=== PATIENT | female | born 1985 | race African-American/Black ===

== ENCOUNTER 2018-07-10 05:09 | Inpatient (IN) ==
[2018-07-10] MEDS ORDERED: MEPERIDINE 50 MG/1 ML VIAL IV PRN (05:23)
[2018-07-10] MEDS ORDERED: BUTORPHANOL 2 MG/ML VIAL IV PRN (05:23)
[2018-07-10] MEDS ORDERED: ONDANSETRON 4 MG/2 ML VIAL IV PRN ×2 (05:23→13:07)
[2018-07-10] MEDS ORDERED: AMPICILLIN INJ 2,000 MG in SODIUM CHLORIDE 0.9% 100 ML IV ONE (05:32)
[2018-07-10 06:22] LABS: Basophils % 0.2 % (0.0-0.8); Eosinophils # 0.1 10*3/uL (0.0-0.87); Eosinophils % 0.9 % (0.00-10.9); Hematocrit 31.2 VOL% (35.7-47.0); Hemoglobin 9.7 GM/DL (12.0-16.0); Immature Granulocytes % 0.8 %; Lymphocytes % 24.8 % (21.3-54.2); Mean Corpuscular HGB Conc 31.1 GM/DL (32-36); Mean Corpuscular Hemoglobin 28 PG (27-34); Mean Corpuscular Volume 91.2 FL (87-102); Mean Platelet Volume 10.7 FL (9.6-12.0); Monocytes % 8.1 % (1.7-12.7); Neutrophils % 65.2 % (38.7-73.9); Platelet Count 190 T/CUMM (130-400); Red Blood Count 3.42 MC/CUMM (3.8-5.5); Red Cell Distribution Width 15.2 % (9.3-17.3); White Blood Count 12.2 T/CUMM (4-12)
[2018-07-10] MEDS: LACTATED RINGERS 1,000 ML IV SCH ×2 (06:32→10:34)
[2018-07-10] MEDS: OXYTOCIN/LR 20 UNIT/1,000 ML BAG IV SCH ×2 (06:40→10:48)
[2018-07-10] MEDS ORDERED: NALOXONE 0.4 MG/ML VIAL IV PRN (07:02)
[2018-07-10] MEDS ORDERED: ePHEDrine 50 MG/ML AMP IV PRN (07:02)
[2018-07-10] MEDS ORDERED: diphenhydrAMINE 50 MG/1 ML VIAL IV PRN (07:02)
[2018-07-10] MEDS ORDERED: CITRIC ACID/SODIUM CITRATE 30 ML UDCUP PO ONE (07:03)
[2018-07-10] MEDS ORDERED: FAMOTIDINE 20 MG/2 ML VIAL IV ONE (07:03)
[2018-07-10] MEDS ORDERED: fentaNYL 2 MCG/ROPIV 0.2% EPID 100 ML EPIDURAL SCH (07:30)
[2018-07-10] MEDS ORDERED: AMPICILLIN INJ 1,000 MG in SODIUM CHLORIDE 0.9% 100 ML IV SCH (07:30)
[2018-07-10] MEDS ORDERED: miSOPROStol 200 MCG TABLET ONE (08:47)
[2018-07-10] MEDS ORDERED: LIDOCAINE 1% 50 ML VIAL ONE (08:47)
[2018-07-10] MEDS ORDERED: METHYLERGONOVINE 0.2 MG/1 ML AMP ONE (08:48)
[2018-07-10] MEDS ORDERED: CARBOPROST TROMETHAMINE 250 MCG/ML AMP IM ONE (08:48)
[2018-07-10 09:27] LABS: Apearance,Urine CLEAR (Clear); Bacteria,Urine Occasional /HPF (Few); Bilirubin,Urine Negative (Negative); Blood, Urine Negative (Negative); Glucose,Urine (UA) Negative (Negative); Ketones,Urine Negative (Negative); Mucus,Urine Occasional /LPF (Occasional); Nitrite,Urine Negative (Negative); Protein,Urine Negative; RBC,Urine 3 /HPF (0-4); Squamous Epithelial Cell,Urine Occasional /HPF (0-10); Urine Color Yellow (Yellow); Urine Specific Gravity 1.023 (1.001-1.035); Urine Urobilinogen < 2.0 EU/DL (0.2-1.0); WBC,Urine 1 /HPF (0-6)
[2018-07-10] MEDS ORDERED: BISACODYL 10 MG SUPP RECTAL PRN (13:07)
[2018-07-10] MEDS ORDERED: LACTATED RINGERS 1,000 ML IV SCH (13:07)
[2018-07-10] MEDS ORDERED: ACETAMINOPHEN 325 MG TABLET PO PRN (13:07)
[2018-07-10] MEDS ORDERED: MAGNESIUM HYDROXIDE SUSP 30 ML UDCUP PO PRN (13:07)
[2018-07-10] MEDS: IBUPROFEN 800 MG TABLET PO PRN (16:07)
[2018-07-10] MEDS: DOCUSATE SODIUM 100 MG CAPSULE PO SCH (20:29)
[2018-07-11] MEDS: IBUPROFEN 800 MG TABLET PO PRN ×2 (00:19→23:37)
[2018-07-11 05:16] LABS: Basophils % 0.2 % (0.0-0.8); Eosinophils # 0.2 10*3/uL (0.0-0.87); Eosinophils % 1.5 % (0.00-10.9); Hematocrit 28.3 VOL% (35.7-47.0); Hemoglobin 8.8 GM/DL (12.0-16.0); Immature Granulocytes Absolute 0.13 #; Lymphocytes # 2.7 10*3/uL (1.4-4.0); Lymphocytes % 20.5 % (21.3-54.2); Mean Corpuscular HGB Conc 31.1 GM/DL (32-36); Mean Corpuscular Hemoglobin 29 PG (27-34); Mean Corpuscular Volume 91.9 FL (87-102); Mean Platelet Volume 11.2 FL (9.6-12.0); Monocytes # 0.9 10*3/uL (0.11-0.8); Monocytes % 6.7 % (1.7-12.7); Neutrophils # 9.2 10*3/uL (1.4-7.4); Neutrophils % 70.1 % (38.7-73.9); Platelet Count 147 T/CUMM (130-400); Red Blood Count 3.08 MC/CUMM (3.8-5.5); Red Cell Distribution Width 15.3 % (9.3-17.3); White Blood Count 13.1 T/CUMM (4-12)
[2018-07-11] MEDS: DOCUSATE SODIUM 100 MG CAPSULE PO SCH ×2 (08:46→20:56)
[2018-07-11] MEDS ORDERED: MULTIVITAMIN (PRENATAL) TABLET PO SCH (09:00)
[2018-07-12 07:27] VITALS: BP 115/62
[2018-07-12] MEDS: DOCUSATE SODIUM 100 MG CAPSULE PO SCH (09:44)
[2018-07-12] MEDS ORDERED: DIPH/TET/ACEL PERT BOOSTER VACCINE 0.5 ML VIAL IM ONE (09:54)
== END 2018-07-12 10:20 | disposition home or self-care (01) | DRG 560 ==
LOC: N.LDOUT 05:09 → N.LD 05:13 → N.OB 12:55
PROVIDERS: ADMIT Obstetrics & Gynecology; ATTEND Obstetrics & Gynecology